=== PATIENT | female | born 1945 | race Caucasian/White ===

== ENCOUNTER → 2021-06-05 11:19 | Outpatient (BNVA) | payer MEDICARE, SELFPAY | PROVIDERS: PCP Internal Medicine; Visit Provider Anesthesiology | DX: M41.9 Scoliosis, unspecified (principal); M47.816 Spondylosis without myelopathy or radiculopathy, lumbar region; M51.36 Other intervertebral disc degeneration, lumbar region; M96.1 Postlaminectomy syndrome, not elsewhere classified; G89.4 Chronic pain syndrome | CPT/HCPCS: 99202 ==

== ENCOUNTER 2021-09-01 10:42 | Day surgery (SDC) | payer MEDICARE, SELFPAY ==
--- NOTE | 2021-08-31 14:28 | HO.ANESPROP2 ---
Documented by User: Mely Joy NP 08/31/21 14:32 HPI - Anesthesia Eval Consult details Narrative: 76yo F for Lumbar Spinal Cord Stimulation Trial PMFSH Active Problems Active Problems: All Active Problems (Updated 06/05/21 @ 13:17 by Jonathan Liao MD) Chronic pain syndrome (Acute) Postlaminectomy syndrome, lumbar (Acute) Disc degeneration, lumbar (Acute) Spondylosis of lumbar spine (Acute) Scoliosis of lumbar spine (Acute) Past Medical History Medical History Chronic pain syndrome Disc degeneration, lumbar Fibromyalgia GERD (gastroesophageal reflux disease) HTN (hypertension) IBS (irritable bowel syndrome) Orthostatic hypotension Osteopenia Postlaminectomy syndrome, lumbar RLS (restless legs syndrome) Scoliosis of lumbar spine Spondylosis of lumbar spine Social History Social History Patient Tobacco Use Status: Former Tobacco user Quit Date: 1969 Years Smoked: 20 Smoked in Last 30 Days: No Use of substances other than those prescribed or required for medical reasons: Yes Substance Use Frequency: Daily Are you DNR?: No Advance Directives: No Advance Directives Information Provided: No Meds Allergies Allergy/AdvReac Type Severity Reaction Status Date / Time gabapentin Allergy unknown Verified 09/01/21 10:51 lisinopril Allergy unknown Verified 09/01/21 10:51 Home Medications Medication Instructions Recorded Confirmed Last Taken Type duloxetine 60 mg capsule,delayed 60 mg PO DAILY 06/05/21 09/01/21 07:00 History release hydrochlorothiazide 25 mg tablet 25 mg PO DAILY 06/05/21 09/01/21 07:00 History losartan 100 mg tablet 100 mg PO DAILY 06/05/21 09/01/21 07:00 History omeprazole 20 mg capsule,delayed 20 mg PO DAILY 06/05/21 09/01/21 07:00 History release pramipexole 0.5 mg tablet 0.5 mg PO BEDTIME 06/05/21 Unknown History tramadol 50 mg tablet 50 mg PO Q4H PRN 06/05/21 09/01/21 07:00 History Vitamin D2 09/01/21 09/01/21 Unknown History Exam Exam Date and Time: August 31, [id number] Assessment and Plan Assessment Anesthesia Assessment: Chart Reviewed Documented by User: Vandana Collado MD 09/01/21 11:28 [facility] Past Medical History Medical History Chronic pain syndrome Disc degeneration, lumbar Fibromyalgia GERD (gastroesophageal reflux disease) HTN (hypertension) IBS (irritable bowel syndrome) Orthostatic hypotension Osteopenia Postlaminectomy syndrome, lumbar RLS (restless legs syndrome) Scoliosis of lumbar spine Spondylosis of lumbar spine Functional capacity: independent ambulation Patient : No Family History Family history of problems with anesthesia: No Surgical History History of Problems with Anesthesia: No Social History Social History Patient Tobacco Use Status: Former Tobacco user Quit Date: 1969 Years Smoked: 20 Smoked in Last 30 Days: No Use of substances other than those prescribed or required for medical reasons: Yes Substance Use Frequency: Daily Are you DNR?: No Advance Directives: No Advance Directives Information Provided: No Meds Allergies Allergy/AdvReac Type Severity Reaction Status Date / Time gabapentin Allergy unknown Verified 09/01/21 10:51 lisinopril Allergy unknown Verified 09/01/21 10:51 Home Medications Medication Instructions Recorded Confirmed Last Taken Type duloxetine 60 mg capsule,delayed 60 mg PO DAILY 06/05/21 09/01/21 07:00 History release hydrochlorothiazide 25 mg tablet 25 mg PO DAILY 06/05/21 09/01/21 07:00 History losartan 100 mg tablet 100 mg PO DAILY 06/05/21 09/01/21 07:00 History omeprazole 20 mg capsule,delayed 20 mg PO DAILY 06/05/21 09/01/21 07:00 History release pramipexole 0.5 mg tablet 0.5 mg PO BEDTIME 06/05/21 Unknown History tramadol 50 mg tablet 50 mg PO Q4H PRN 06/05/21 09/01/21 07:00 History Vitamin D2 09/01/21 09/01/21 Unknown History Exam Airway Mallampati Class: II TM Dist: >3cm Neck ROM: Full Heart: RRR Lungs: CTA Assessment and Plan Final Anesthetic Review Family History of Problems with Anesthesia: No History of Problems with Anesthesia: No ASA Class: II Final Preanesthetic Review: No Changes in Pt Med Stat, Meds/Allgs Chart Reviewed, Consent Obtained/Reviewed and Anes Risks/Benef Reviewed Patient Risk: Low Procedure Risk: Low Anesthetic Plan Anesthetic Plan: MAC: Disposition: Standard PACU
--- NOTE | ~2021-09-01 | FL_ITS ---
EXAMINATION: XR FLUOROSCOPY WITH IMAGES CLINICAL INFORMATION: Stimulator trial. COMPARISON: None. TECHNIQUE: Fluoroscopy performed by Dr. Liao. Fluoroscopy time: 20.0 minutes DAP: 83.4 mGy-cm2 Images: 2 FINDINGS: AP and lateral views of the lower dorsal spine reveal spinal stimulators positioned approximately at the T6-T7 disc level. There is mild dextroscoliosis of the dorsal lumbar junction with degenerative disc changes at the T9-T10 and T11-T12 disc levels with mild right spondylosis at the T8-T9 and T9-10 disc levels. No lytic process seen. FL/FL guidance in OR IMPRESSION: Fluoroscopy was provided and 2 views obtained for placement of spinal stimulators by referring physician.
[2021-09-01 10:57] VITALS: BMI 27.9
[2021-09-01 11:00] VITALS: BP 179/70; PULSE 70; RESP 16; TEMP 36.6; O2SAT 98
[2021-09-01] MEDS: Lactated Ringers 1,000 ML 100 ML IVCONT (11:17)
--- NOTE | 2021-09-01 11:22 | MHC.SHP ---
Pre-Procedural Eval Section A Date of Service: 09/01/21 The patient is an INPATIENT: No Changes since office visit: Yes Patient answered all questions Section B Chief Complaint: Postlaminectomy syndrome, Lumbar Details of Present Illness: ABOVE Relevant Family History (Specify if Yes): No Relevant Social History: None Present Medications: see Short Stay Collaborative assessment Medical History: No relevant PMH History of Previous Operations: No relevant previous surgery Allergies: Allergies Allergy/AdvReac Type Severity Reaction Status Date / Time gabapentin Allergy unknown Verified 09/01/21 10:51 lisinopril Allergy unknown Verified 09/01/21 10:51 Review of Systems Sugical H&P ROS: Negative: Constitution, Cardiovascular, Respiratory, Neurological, Psychiatric, Hem-Onc, Allergic/Immunologic, Gastrointestinal, Genitourinary, Musculoskeletal, Integumentary, Endocrine and Eyes/Ears/Nose/Throat Exam Surgical H&P Exam: Normal: HEENT, Normal: Heart, Normal: Lungs, Normal: Extremities, Normal: Abdomen, Normal: Skin and Normal: Neurological Plan Diagnosis/Plan: Unchanged I have reviewed the history and physical and performed a pertinent physical examination on my patient. No changes have occurred unless specified.
--- NOTE | 2021-09-01 11:32 | W.PM.OPN ---
Operative Note Operative Note Date of Service: 09/01/21 Narrative: Luz is 76 years old female who came today into the operating room for trial of spinal cord stimulator [employer] for the treatment of post laminectomy syndrome. Preoperatively patient received clindamycin 900 mg 30 minutes before the procedure. After obtaining informed consent the patient was brought to the operating room, she was positioned prone on operating table, [employer] [employer] monitors were applied and patient was deeply sedated.? ?Time-out was performed delineating correct site, side, the nature of the procedure, patient's allergy, preoperative antibiotic if needed.? All operating room staff was participating in OR time-out procedure. Patient's entire back was prepped with DuraPrep twice and draped with full body fenestrated drape.? Sterilely draped C-arm was brought over operating field and square picture of T11,T12, L1 L2 vertebrae as were demonstrated on the screen.?Significant scoliosis and rotational deformation of the spinal column was noted. Attention FIRST? was concentrated on the right T12-L1 epidural interspace.? The location of the projection of the right pedicle center of the L2 vertebra was found on the skin using C-arm.? This location was injected with mixture of lidocaine 2% and Marcaine 0.5% 5 cc.? After that 11 blade was used to make a anshu on the skin.? 10 cm 14 gauge? introducer epidural needle was inserted through the anshu and advanced to? L1-L2 epidural interspace.? The? advancement of the needle was performed on anterior posterior and lateral views.? Guitar wire and loss of resistance technique were used to locate epidural space. epidural lead advanced appeared to be difficult due to rotational deformity of the spine.? It was difficult to advance the lead scraping against sharp angled positioned epidural needle and the needle was withdrawn and replaced with blue sheeth introducer. The epidural lead was inserted through the blue sheeth introducer and it was advanced to bottom of T7 position slightly left from MIDLINE.? After that location of the projection of the LEFT pedicle center of the L2 vertebra was found on the skin using C-arm.? This location was injected with mixture of lidocaine 2% and Marcaine 0.5% 5 cc.? After that 11 blade was used to make a anshu on the skin.? 10 cm 14 gauge straight introducer epidural needle was inserted through the anshu and advanced to T12- L1 epidural interspace.? The advancement of the needle was performed on anterior posterior and lateral views.? Guitar wire and loss of resistance technique were used to locate epidural space.? When guitar wire was spread in the epidural fashion, epidural lead was inserted through the needle and attempt was made to advance the epidural lead into the posterior epidural space. Unfortunately the lead continued to deviate to the gutter and from there to the anterior epidural space. The decision was made to change the entrance point to T11 - T12 intervertebral space where the rotation of the thoracic spne was constricted by the rib cage and appeared to be less pronounced. For this purpouse the 5 inch 14 g. epidural introducer needle was used to advance to the T11 - T12 epidural interspace under AP and lateral intemittent views, MARY to air was used as the additional indicator of the epidiral space. When the needle entered the epidural space the guitar wire was inserted and it was advancing in the epidural space fashion. After that epidural lead was inserted into the needle and advanced to the epidural space slightly right from the position of the first epidural lead. When both leads reached the level of the epidural posterior space at the T7 vertebra the impedance was checked and was satisfactory .? The patient was awake at this moment and epidural leads were connected to testing device.? Testing demonstrated pain of the patient corresponding to the stimulation pattern.? After that the needles were withdrawn, the stylette wires were removed from the epidural leads.? Anchoring devices were advanced on the the epidural leads to the skin level and sutured to the skin with 2 sutures 0 silk each. fixation screws on anchoring devices were tighted until 3 clicks were heard. bacitracin ointment was applied to the entrance points..? Sterile dressing was applied to the patient's back.? The testing device was also taped to the patient's back.? The patient tolerated procedure well she was transferred to the [facility] and went to PACU for recovery. Suggestion fort implant: entrance level T11- T12
[2021-09-01 14:10] VITALS: BP 159/55; PULSE 68; RESP 14; TEMP 36.4; O2SAT 97
--- NOTE | 2021-09-01 14:17 | PM.OP ---
Brief Operative Note Date of Service: 09/01/21 Pre-op diagnosis: postlaminectomy syndrome Post-op diagnosis: same Procedure: trial of SCS [place] [employer] Implants: none permanent. Surgeon: Jonathan Liao MD Anesthesia: MAC Was an [employer] Operator used for this Procedure?: No Estimated blood loss (mL): 9 Pathology: none sent Condition: stable Disposition: PACU
[2021-09-01 14:25] VITALS: BP 175/75; PULSE 70; RESP 16; O2SAT 97
[2021-09-01] MEDS: Acetaminophen 325 MG TABLET 650 MG PO (14:25)
[2021-09-01 14:40] VITALS: BP 157/69; PULSE 67; RESP 16; O2SAT 96
[2021-09-01 14:55] VITALS: BP 174/81; PULSE 64; RESP 18; TEMP 36.7; O2SAT 96
--- NOTE | 2021-09-01 15:03 | HO.POSTANES ---
Post Anesthesia Evaluation Post Anesthesia Evaluation Vital Signs: Vital Signs Temp Pulse Resp BP Pulse Ox 09/01/21 14:40 67 16 157/69 H 96 09/01/21 14:25 70 16 175/75 H 97 09/01/21 14:10 97.5 F 68 14 159/55 H 97 09/01/21 11:00 97.8 F 70 16 179/70 H 98 Anesthesia: Monitored Mental Status: Awake Pain Control: Satisfactory Nausea/Vomiting: None Hydration: Adequate Anesthesia-Related Issues: No Anes. Related Issues
== END 2021-09-01 15:30 | disposition home or self-care (01) ==
PROVIDERS: PCP Internal Medicine; Visit Provider Anesthesiology
PROC: (CPT 63650; principal; 2021-09-01 12:30)
DX: M41.86 Other forms of scoliosis, lumbar region (principal); M47.816 Spondylosis without myelopathy or radiculopathy, lumbar region; M51.36 Other intervertebral disc degeneration, lumbar region; G89.4 Chronic pain syndrome; M54.2 Cervicalgia; M54.50 Low back pain, unspecified; M96.1 Postlaminectomy syndrome, not elsewhere classified; M79.7 Fibromyalgia; Z98.1 Arthrodesis status; I10 Essential (primary) hypertension; R51.9 Headache, unspecified; Z88.8 Allergy status to other drugs, medicaments and biological substances; Z87.891 Personal history of nicotine dependence
CPT/HCPCS: 63650 ×2; C1713; C1778; J1100; J2250; J3010

== ENCOUNTER 2021-09-07 10:13 | Outpatient (REF) | payer MEDICARE, SELFPAY ==
--- NOTE | ~2021-09-07 | XR_ITS ---
EXAMINATION: XR THORACOLUMBAR SPINE CLINICAL INFORMATION: Scoliosis. COMPARISON: Intraoperative radiographs of the thoracic spine from 09/01/2021. TECHNIQUE: AP and lateral views of the thoracic spine. FINDINGS: Mild S-shaped scoliosis of the thoracic spine is redemonstrated. A spinal stimulator overlies the mid thoracic spine, similar to comparison radiographs. No fracture is identified. Alignment is stable. Moderate degenerative changes are redemonstrated. XR/XR thoracic spine 2V IMPRESSION: A spinal stimulator device is in place. No fractures or malalignment identified. Moderate degenerative changes.
== END 2021-09-07 10:14 | disposition home or self-care (01) ==
LOC: HO.XRAY 10:13
PROVIDERS: PCP Internal Medicine; Visit Provider Anesthesiology
DX: M41.9 Scoliosis, unspecified (principal); M47.816 Spondylosis without myelopathy or radiculopathy, lumbar region; M51.36 Other intervertebral disc degeneration, lumbar region; M96.1 Postlaminectomy syndrome, not elsewhere classified; G89.4 Chronic pain syndrome
CPT/HCPCS: 72070; 99212

== ENCOUNTER 2021-11-03 06:00 | Day surgery (SDC) | payer MEDICARE, SELFPAY ==
[2021-10-30 11:15] VITALS: BMI 27.8
--- NOTE | 2021-11-02 12:20 | P.CONAN_ITS ---
Documented by User: Mely Joy NP 11/16/21 12:04 HPI - Anesthesia Eval Consult details Narrative: 76yo F for Lumbar Spinal Cord Stimulation Implant [facility] Active Problems Active Problems: All Active Problems (Updated 10/30/21 @ 11:11 by Julissa Heredia RN) Chronic pain syndrome (Acute) Postlaminectomy syndrome, lumbar (Acute) Disc degeneration, lumbar (Acute) Spondylosis of lumbar spine (Acute) Scoliosis of lumbar spine (Acute) Past Medical History Medical History Chronic pain syndrome Disc degeneration, lumbar Fibromyalgia GERD (gastroesophageal reflux disease) HTN (hypertension) IBS (irritable bowel syndrome) Orthostatic hypotension Osteopenia Postlaminectomy syndrome, lumbar RLS (restless legs syndrome) Scoliosis of lumbar spine Spondylosis of lumbar spine Status post insertion of nerve stimulator Family History Family history of problems with anesthesia: No Surgical History History of Problems with Anesthesia: No Social History Social History Patient Tobacco Use Status: Former Tobacco user Quit Date: 1969 Tobacco use type: Cigarette Years Smoked: 20 Meds Allergies Allergy/AdvReac Type Severity Reaction Status Date / Time gabapentin Allergy unknown Verified 11/16/21 09:22 lisinopril Allergy unknown Verified 11/16/21 09:22 Home Medications Medication Instructions Recorded Confirmed Last Taken Type duloxetine 60 mg capsule,delayed 60 mg PO DAILY 06/05/21 09/01/21 07:00 History release hydrochlorothiazide 25 mg tablet 25 mg PO DAILY 06/05/21 09/01/21 07:00 History losartan 100 mg tablet 100 mg PO DAILY 06/05/21 09/01/21 07:00 History omeprazole 20 mg capsule,delayed 20 mg PO DAILY 06/05/21 09/01/21 07:00 History release pramipexole 0.5 mg tablet 0.5 mg PO BEDTIME 06/05/21 Unknown History tramadol 50 mg tablet 50 mg PO Q4H PRN 06/05/21 09/01/21 07:00 History Vitamin D2 09/01/21 09/01/21 Unknown History amlodipine 2.5 mg tablet 2.5 mg PO DAILY 11/16/21 Unknown History Exam Exam Date and Time: November 02, 2021 1220 Height,Weight and Vital Signs: Height 5 ft 5 in Weight 75.977 kg Assessment and Plan Assessment Anesthesia Assessment: Chart Reviewed Final Anesthetic Review Family History of Problems with Anesthesia: No History of Problems with Anesthesia: No Documented by User: Brenton Escobar MD 01/03/22 16:17 HPI - Anesthesia Eval Consult details Narrative: 76yo F for Lumbar Spinal Cord Stimulation Implant Ashish s/p Trial 08/2021 [facility] Past Medical History Medical History Chronic pain syndrome Disc degeneration, lumbar Fibromyalgia GERD (gastroesophageal reflux disease) HTN (hypertension) IBS (irritable bowel syndrome) Orthostatic hypotension Osteopenia Postlaminectomy syndrome, lumbar RLS (restless legs syndrome) Scoliosis of lumbar spine Spondylosis of lumbar spine Status post insertion of nerve stimulator Social History Social History Patient Tobacco Use Status: Former Tobacco user Quit Date: 1969 Tobacco use type: Cigarette Years Smoked: 20 Meds Allergies Allergy/AdvReac Type Severity Reaction Status Date / Time gabapentin Allergy unknown Verified 11/16/21 09:22 lisinopril Allergy unknown Verified 11/16/21 09:22 Home Medications Medication Instructions Recorded Confirmed Last Taken Type duloxetine 60 mg capsule,delayed 60 mg PO DAILY 06/05/21 09/01/21 07:00 History release hydrochlorothiazide 25 mg tablet 25 mg PO DAILY 06/05/21 09/01/21 07:00 History losartan 100 mg tablet 100 mg PO DAILY 06/05/21 09/01/21 07:00 History omeprazole 20 mg capsule,delayed 20 mg PO DAILY 06/05/21 09/01/21 07:00 History release pramipexole 0.5 mg tablet 0.5 mg PO BEDTIME 06/05/21 Unknown History tramadol 50 mg tablet 50 mg PO Q4H PRN 06/05/21 09/01/21 07:00 History Vitamin D2 09/01/21 09/01/21 Unknown History amlodipine 2.5 mg tablet 2.5 mg PO DAILY 11/16/21 Unknown History Exam Airway Mallampati Class: II Neck ROM: Full Loose/Missing/Broken Teeth: Yes (Implants , caps and crowns ) Heart: S1 S2 Lungs: b/l breath sounds Assessment and Plan Assessment Anesthesia Assessment: Anesthesia Plan Discussed Final Anesthetic Review NPO: Yes ASA Class: III Final Preanesthetic Review: Meds/Allgs Chart Reviewed, Consent Obtained/Reviewed and Anes Risks/Benef Reviewed Patient Risk: Intermediate Procedure Risk: Intermediate Anesthetic Plan Anesthetic Plan: MAC: Disposition: Standard PACU
[2021-11-03] VITALS (12 sets, daily range): BP systolic 107–174; BP diastolic 53–77; PULSE 65–75; RESP 13–18; TEMP 36.1–36.4; O2SAT 95–99
--- NOTE | ~2021-11-03 | FL_ITS ---
EXAMINATION: XR FLUOROSCOPY WITH IMAGES CLINICAL INFORMATION: Spinal cord implant COMPARISON: 09/07/2021 TECHNIQUE: Fluoroscopy performed by Dr. Jonathan Liao. Fluoroscopy time: 18.2 minutes DAP: 71.9 mGycm2 Images: 2 FL/FL guidance in OR FINDINGS/IMPRESSION: Images demonstrate removal and replacement of the pre-existing spinal neurostimulator leads with a single lead projecting over the lower thoracic central canal at the level of T8-T9. Moderate S-shaped thoracic scoliosis redemonstrated. Please see operative report.
[2021-11-03] MEDS: Lactated Ringers 1,000 ML 100 ML IVCONT (06:46)
--- NOTE | 2021-11-03 07:28 | P.OP_ITS ---
Operative Note Operative Note Date of Service: 11/03/21 Narrative: Luz is very pleasant 76 years old female who came today into the operating room for implantation of spinal cord stimulator for the treatment of pain related to postlaminectomy syndrome and chronic pain syndrome.? she had successful trial of spinal cord stimulation.? placement of electrodes was very difficult during the trial. See description of the trial in surgery section of this chart. Preoperatively patient received 2 g cefazolin _approximately 30 minutes before the procedure. After obtaining informed consent patient was brought to the operating room, she was positioned prone on operating table, [employer] monitors were applied and patient was deeply sedated. Time-out was performed delineating correct site, side, the nature of the procedure, patient's allergy, preoperative antibiotic.? All operating room staff was participating in OR time-out procedure. Patient's entire back was prepped with ChloraPrep twice and draped with full body drape including Ioban film.? Sterilely draped C-arm was brought over operating field and square picture of T12, L1, L2 vertebrae were demonstrated on the screen.? THE PROJECTION OF T12 - L1-L2 SPINAL PROCESSES TO THE SKIN WERE INFILTRATED WITH LIDOCAINE 2% MIXED WITH BUPIVACAINE 0.5%.? Six CM LONG VERTICAL INCISION using a 10 blade scalpel WAS PERFORMED IN STRICT MIDLINE VERTICAL FASHION.? THOROUGH HEMOSTASIS WAS PERFORMED using electrocautery .. ?Thorough tissue dissections was performed until prevertebral fascia was freed from overlying tissues.? Attention FIRST? was concentrated on the RIGHT T11-T12 epidural interspace.? The location of the projection of the right pedicle center of the K2atusdbsd was found on the prevertebral fascia using C-arm.? This location was injected with mixture of lidocaine 2% and Marcaine 0.5% 5 cc in approximate direction of needle advancement..? After that ? 10 cm 14 gauge straight introducer epidural needle was inserted through the fascia and advanced toward T11-T12 epidural interspace.? The advancement of the needle was performed on anterior posterior and lateral views.? Guitar wire and loss of resistance technique were used to locate epidural space.? When guitar wire was spread in the epidural fashion, epidural lead was inserted through the skin and it was attempted to advance to T7 epidural interspace however at the location of approximately T9 vertebra it kept deviating into the anterior epidural space. epidural needle was removed. A blue sheath introducer was Inserted over the epidural lead andattempts were made again to advance it over the epidural catheter into the epidural space. However due to severe adhesions blue sheath introducer was bending and flexing laterally itself I was unable to manipulate the catheter any further and therefore the epidural catheter and the blue sheath introducer were removed the epidural space an mass. After that attempt was made to insert longer epidural needle 5 in long to the T10-T11 epidural interspace however the patient is severe scoliosis and the position of the wound in the lower back would not could correspond in geometry and needle would be very difficult to advance from that incision to T10-T11 epidural interspace. The needle would rather go into the lamina of T 11 or into the lower border of the lamina of T10 on the right. The decision was made to try contralateral side for the insertion of the epidural lead. The location of the projection of the LEFT pedicle center of the L1 vertebra was found -using C-arm.? 10 cm 14 gauge curved introducer epidural needle was inserted through the fascia and advanced to T11-T12 epidural interspace.? The advancement of the needle was performed on anterior posterior and lateral views.? Guitar wire and loss of resistance technique were used to locate epidur al space.? When guitar wire was spread in the epidural fashion, epidural lead was inserted through the needle and advanced to the T9 POSTERIOR EPIDURAL SPACE SLIGHTLY right to the midline. After that attention was concentrated again on the left epidural interspace were insertion of the epidural needle was attempted to be performed at T12-L1 epidural interspace. The epidural space was reached in the same technique as described above, after that epidural electrodes lead was inserted into the epidural needle and again difficulty advancement of the epidural lead beyond the level of the needle insertions were encountered. On top of everything slightly blood tinged CSF started to appear in the hub of the needle. At this moment the decision was made to limit the procedure with 1 epidural electrode a raise due to very severe epidural adhesions and difficulty of epidural leads advancement. The epidural lead which was positioned in the epidural space from the left side was connected to testing device, the patient was awaken and stimulation was applied. Patient reported good stimulation in the lower back with spread Of the stimulation to the right. no gutter stimulation was detected. Position of the electrode was verified on anterior posterior views and on the lateral view the position of the electrode on the lateral view was in the posterior epidural space. After the position of the lead was admitted to be satisfactory the stylette wire was removed from the epidural leads.? The anchoring devices were dislodged on the leads and advanced to the level of the skin.? The anchoring device was advanced along the epidural leads and dislodged and epidural leads at the level of prevertebral fascia.? it was sutured to prevertebral fascia with 2 separate etibone sutures .? The fixating screws was fixed until 3 clicks were heard on each anchoring device.? After that the wound was irrigated with copious amount of Vancomycin containing normal saline and packed with Vancomycin soaked 4 x 4. ?After that attention was concentrated on the left upper buttock of the patient where he wanted battery to be implanted.? 6 cm long horizontal incision was performed 3 cm below the top of the iliac crest. Subcutaneous pocket was formed not deeper than 2 cm under the skin using dull dissection and electrocautery dissection.? Thorough hemostasis was obtained.? The wound was irrigated with copious amount of Vancomycin contained normal saline.? Tunneling device was used to connect the 2 wounds and epidural leads were dislodged into side wound.? They were connected alpha battery and locked with a locking screwdriver device.? Impedance was checked and appeared to be satisfactory.? After that the anchoring sutures Tycron were applied in the most superior medial and most superior lateral corners of the wound.? After that they were connected to the anchoring holes on the body of the battery, the epidural leads were gathered? behind the body of the-battery, the battery and the leads were inserted into the pocket wound and after that the anchoring 2 sutures were tied.? The wounds were irrigated again with Vancomycin containing normal saline, thorough hemostasis was checked, and after that the wounds were closed using 0 Polysorb suture.? After that the skin edges wore approximated using 2 0 Polysorb suture, gerry were applied to the wounds at the level of the skin.? Bacitracin ointment was applies to the level of the gerry and sterile dressings were applied to the staple lines.? Medipore Tape was applied to hold the dressing to the patient's skin.? Abdominal binder to wear was provided to the patient.? At this moment patient was awaken and transferred to the bed.? she was recovering uneventfully in PACU. ?
--- NOTE | 2021-11-03 07:28 | MHC.SHP ---
Pre-Procedural Eval Section A Date of Service: 11/03/21 Section B Chief Complaint: postlaminectomy syndrome Details of Present Illness: as above Relevant Family History (Specify if Yes): No Relevant Social History: Other (specify) Present Medications: None Medical History: No relevant PMH History of Previous Operations: Relevant previous surgery/procedure and date(s) Allergies: Allergies Allergy/AdvReac Type Severity Reaction Status Date / Time gabapentin Allergy unknown Verified 09/07/21 11:05 lisinopril Allergy unknown Verified 09/07/21 11:05 Review of Systems Sugical H&P ROS: Negative: Constitution, Cardiovascular, Respiratory, Neurological, Psychiatric, Hem-Onc, Allergic/Immunologic, Gastrointestinal, Genitourinary, Musculoskeletal, Integumentary, Endocrine and Eyes/Ears/Nose/Throat Exam Surgical H&P Exam: Normal: HEENT, Normal: Heart, Normal: Lungs, Normal: Extremities, Normal: Abdomen, Normal: Skin and Normal: Neurological Plan Diagnosis/Plan: Unchanged I have reviewed the history and physical and performed a pertinent physical examination on my patient. No changes have occurred unless specified.
--- NOTE | 2021-11-03 10:48 | PM.OP ---
Brief Operative Note Date of Service: 11/03/21 Pre-op diagnosis: postlaminectomy syndrome Post-op diagnosis: same Procedure: implantation of [employer] SCS Implants: [employer] Battery and one epidural electrode. Surgeon: Jonathan Liao MD Anesthesia: MAC Was an Disposal Plant Operator used for this Procedure?: No Estimated blood loss (mL): 12 Pathology: none sent Condition: stable Disposition: PACU
[2021-11-03] MEDS: oxyCODONE HCl Immed Release 5 MG TABLET PO (11:21)
[2021-11-03] MEDS: fentaNYL citrate/PF 100 MCG/2 ML VIAL 25 MCG IVPUSH ×2 (12:17→12:25)
== END 2021-11-03 13:56 ==
LOC: HO.SSS 06:01
PROVIDERS: PCP Internal Medicine; Visit Provider Anesthesiology
PROC: (CPT 63685; principal; 2021-11-03 07:30)
DX: M96.1 Postlaminectomy syndrome, not elsewhere classified (principal); G89.4 Chronic pain syndrome; M51.36 Other intervertebral disc degeneration, lumbar region; M54.50 Low back pain, unspecified; M47.816 Spondylosis without myelopathy or radiculopathy, lumbar region; M41.86 Other forms of scoliosis, lumbar region; G96.12 Meningeal adhesions (cerebral) (spinal); M85.80 Other specified disorders of bone density and structure, unspecified site; M79.7 Fibromyalgia; G25.81 Restless legs syndrome; I95.1 Orthostatic hypotension; I10 Essential (primary) hypertension; Z79.899 Other long term (current) drug therapy; Z88.8 Allergy status to other drugs, medicaments and biological substances; Z87.891 Personal history of nicotine dependence
CPT/HCPCS: 63685; 63650 ×2; C1713; C1778; C1787; C1820; C1894; J0690; J3010; J3370

== ENCOUNTER → 2021-11-09 08:56 | Outpatient (BNVA) | payer MEDICARE, SELFPAY | PROVIDERS: PCP Internal Medicine; Visit Provider Anesthesiology | DX: Z48.89 Encounter for other specified surgical aftercare (principal); G89.4 Chronic pain syndrome; M41.9 Scoliosis, unspecified; M47.816 Spondylosis without myelopathy or radiculopathy, lumbar region; M51.36 Other intervertebral disc degeneration, lumbar region; M96.1 Postlaminectomy syndrome, not elsewhere classified; Z97.8 Presence of other specified devices | CPT/HCPCS: 99212 ==

== ENCOUNTER → 2021-11-16 08:49 | Outpatient (BNVA) | payer MEDICARE, SELFPAY | PROVIDERS: PCP Internal Medicine; Visit Provider Anesthesiology | DX: M41.9 Scoliosis, unspecified (principal); M47.816 Spondylosis without myelopathy or radiculopathy, lumbar region; M51.36 Other intervertebral disc degeneration, lumbar region; M96.1 Postlaminectomy syndrome, not elsewhere classified; G89.4 Chronic pain syndrome | CPT/HCPCS: 99212 ==